=== PATIENT | male | born 1950 | race Caucasian/White ===

== ENCOUNTER 2017-12-01 02:38 | Emergency (ER) | payer MEDICARE, BC ==
[~2017-12-01] VITALS: Ht 170.2 cm; Wt 91.3 kg
[~2017-12-01 02:38] MED LIST: ADLT ASA LOW81 MG PO; AMLODIPINE BESYL5 MG PO; ATORVASTATIN CA40 MG PO; INDOMETHACIN50 MG PO; LOSARTAN POT50 MG PO
[2017-12-01] MEDS ORDERED: NAPROSYN500 MG PO (03:01)
[2017-12-01] MEDS ORDERED: CILOSTAZOL100 MG PO (03:01)
[2017-12-01] MEDS ORDERED: VERAPAMIL180 M2 PO (03:01)
[2017-12-01] MEDS ORDERED: CRESTOR20 MG PO (03:02)
[2017-12-01] MEDS ORDERED: CELEXA20 MG PO (03:03)
[2017-12-01] MEDS ORDERED: MELOXICAM15 MG PO (03:03)
[2017-12-01 03:23] LABS: IMMATURE GRANULOCYTES 0.3 % (0.0-1.0); MEAN CORPUSCULAR HGB 30.1 pG CALC (26.0-32.0); MEAN CORPUSCULAR HGB CONC 33.6 g/L CALC (32.0-36.0); NEUT# 6.84 thou/uL (1.82-7.42); RED BLOOD COUNT 3.22 mill/uL (4.70-6.10)
[2017-12-01 03:24] LABS: HEMATOCRIT 28.9 % (39.0-50.0); HEMOGLOBIN 9.7 g/dl (14.0-18.0)
[2017-12-01 03:25] LABS: MEAN CELL VOLUME 89.8 fL CALC (80.0-100.0)
[2017-12-01 03:31] LABS: ALBUMIN 4.5 g/dL (3.2-5.0); ALKALINE PHOSPHATASE 64 u/l (38-126); AMYLASE 86 u/l (30-110); ANION GAP 15 (6-22 (CALC)); BILIRUBIN, TOTAL 0.4 mg/dL (0.0-1.4); BUN 15 mg/dL (8-23); BUN/CREATININE RATIO 24 (12-20 (CALC)); CARBON DIOXIDE 26 mmol/l (22-30); CHLORIDE 101 mmol/l (95-108); CREATININE 0.6 mg/dL (0.7-1.3); GFR > 60 ML/MIN (>=60 (CALC)); GFR FOR AFR.AMER. > 60 ML/MIN (>=60 (CALC)); LIPASE 135 u/l (23-300); POTASSIUM 3.9 mmol/l (3.5-5.1); SGOT/AST 20 u/l (19-48); SGPT/ALT 33 u/l (11-66); SODIUM 139 mmol/l (137-146); TOTAL PROTEIN 7.4 g/dL (6.3-8.2)
[2017-12-01 03:43] LABS: MYOGLOBIN 36 ng/mL (0 - 121)
[2017-12-01] MEDS ORDERED: METFORMIN500 MG PO (05:41)
[2017-12-01 06:10] VITALS: BP 152/70
== END 2017-12-01 06:19 ==
LOC: ED 02:38
PROVIDERS: Emergency Medicine
DX: K92.2 Gastrointestinal hemorrhage, unspecified (principal); E11.9 Type 2 diabetes mellitus without complications; I10 Essential (primary) hypertension; E78.00 Pure hypercholesterolemia, unspecified; F17.210 Nicotine dependence, cigarettes, uncomplicated; Z95.2 Presence of prosthetic heart valve; R07.9 Chest pain, unspecified
CPT/HCPCS: S0164

== ENCOUNTER 2018-03-21 16:48 | Emergency (ER) | payer MEDICARE ==
[~2018-03-21] VITALS: Ht 170.2 cm; Wt 72.7 kg
[~2018-03-21 16:48] MED LIST changes: +CELEXA20 MG PO; +CILOSTAZOL100 MG PO; +CRESTOR20 MG PO; +MELOXICAM15 MG PO; +METFORMIN500 MG PO; +NAPROSYN500 MG PO; +VERAPAMIL180 M2 PO
[2018-03-21 17:03] LABS: IMMATURE GRANULOCYTES 0.3 % (0.0-5.0); MEAN CELL VOLUME 85.6 fL CALC (80.0-100.0); MEAN CORPUSCULAR HGB 28.6 pG CALC (26.0-32.0); MEAN CORPUSCULAR HGB CONC 33.5 g/L CALC (32.0-36.0); NEUT# 3.08 thou/uL (1.82-7.42); RED BLOOD COUNT 5.69 mill/uL (4.70-6.10); RED CELL DISTRI WIDTH 19.1 % (11.5-15.5)
[2018-03-21 17:18] LABS: HEMATOCRIT 48.7 % (39.0-50.0); HEMOGLOBIN 16.3 g/dl (14.0-18.0)
[2018-03-21 18:03] LABS: ALBUMIN 4.4 g/dL (3.2-5.0); ALKALINE PHOSPHATASE 59 u/l (38-126); ANION GAP 20 (6-22 (CALC)); BILIRUBIN, TOTAL 0.3 mg/dL (0.0-1.4); BUN 21 mg/dL (8-23); BUN/CREATININE RATIO 29 (12-20 (CALC)); CARBON DIOXIDE 23 mmol/l (22-30); CHLORIDE 107 mmol/l (95-108); CREATININE 0.7 mg/dL (0.7-1.3); GFR > 60 ML/MIN (>=60 (CALC)); GFR FOR AFR.AMER. > 60 ML/MIN (>=60 (CALC)); POTASSIUM 4.3 mmol/l (3.5-5.1); SGOT/AST 27 u/l (19-48); SODIUM 147 mmol/l (137-146); TOTAL PROTEIN 7.1 g/dL (6.3-8.2)
[2018-03-21 18:13] LABS: ETHYL ALCOHOL 343 mg/dl (0-30)
[2018-03-21] MEDS ORDERED: VERAPAMIL180 M1 PO (18:15)
[2018-03-21] MEDS ORDERED: PROTONIX40 M2 PO (18:16)
[2018-03-21] MEDS ORDERED: TRAMADOL HYDROC50 MG PO (18:17)
[2018-03-21 18:19] LABS: URINE BILIRUBIN - DIPSTICK NEGATIVE (NEGATIVE); URINE BLOOD DIPSTICK TRACE-INTACT (NEGATIVE); URINE COLOR YELLOW; URINE GLUCOSE - DIPSTICK NEGATIVE (NEGATIVE); URINE KETONE TRACE mg/dL (NEGATIVE); URINE LEUK ESTERASE NEGATIVE (NEGATIVE); URINE NITRITE - DIPSTICK NEGATIVE (Negative); URINE PROTEIN - DIPSTICK 30 mg/dL (NEG-TRACE); URINE SPECIFIC GRAVITY >=1.030; URINE UROBILINOGEN - DIPSTICK 0.2 E.U./dL (0.2)
[2018-03-21 18:20] LABS: URINE CLARITY CLEAR
[2018-03-21 18:24] LABS: BARBITURATES NEGATIVE (NEGATIVE); COCAINE NEGATIVE (NEGATIVE); METHADONE NEGATIVE (NEGATIVE); OXCYCODONE NEGATIVE (NEGATIVE); TETRAHYDROCANNABIONOL NEGATIVE (NEGATIVE); TRICYLIC ANTIDEPRESSANTS NEGATIVE (NEGATIVE)
[2018-03-21 18:30] LABS: URINE MUCUS FEW hpf (NONE-FEW); URINE SQUAMOUS EPITHELIAL CELL FEW EPI/hpf (0-FEW)
[2018-03-22 01:35] VITALS: BP 151/67
== END 2018-03-22 01:35 ==
LOC: ED 16:48
DX: R45.851 Suicidal ideations (principal); F32.9 Major depressive disorder, single episode, unspecified; F10.10 Alcohol abuse, uncomplicated; E11.9 Type 2 diabetes mellitus without complications; I10 Essential (primary) hypertension; J44.9 Chronic obstructive pulmonary disease, unspecified; F17.200 Nicotine dependence, unspecified, uncomplicated

== ENCOUNTER 2021-10-18 18:37 | Observation (INO) | payer MEDICARE, MEDICAID ==
[~2021-10-18] VITALS: Ht 170.2 cm; Wt 78.0 kg
[2021-10-18] VITALS (11 sets, daily range): BP systolic 131–157; BP diastolic 61–78
[~2021-10-18 18:37] MED LIST changes: +PROTONIX40 M2 PO; +TRAMADOL HYDROC50 MG PO; +VERAPAMIL180 M1 PO
[2021-10-18 19:51] LABS: ALBUMIN 4.9 g/dL (3.2-5.0); ALKALINE PHOSPHATASE 58 u/l (38-126); ANION GAP 30 (6-22 (CALC)); BILIRUBIN, TOTAL 0.4 mg/dL (0.0-1.4); BUN 27 mg/dL (8-23); BUN/CREATININE RATIO 28 (12-20 (CALC)); CARBON DIOXIDE 10 mmol/l (22-30); CHLORIDE 108 mmol/l (95-108); ETHYL ALCOHOL 197 mg/dl (0-30); GFR FOR AFR.AMER. > 60 ML/MIN (>=60 (CALC)); GFR OTHER RACES > 60 ML/MIN (>=60 (CALC)); LIPASE 159 u/l (23-300); POTASSIUM 4.7 mmol/l (3.5-5.1); SGOT/AST 31 u/l (19-48); SODIUM 143 mmol/l (137-146); TOTAL PROTEIN 7.3 g/dL (6.3-8.2)
[2021-10-18 20:02] LABS: MYOGLOBIN 63 ng/mL (0 - 121)
[2021-10-18 20:11] LABS: HEMATOCRIT 46.4 % (39.0-50.0); HEMOGLOBIN 15.3 g/dl (14.0-18.0); IMMATURE GRANULOCYTES 0.4 % (0.0-5.0); MEAN CELL VOLUME 102.9 fL CALC (80.0-100.0); MEAN CORPUSCULAR HGB 33.9 pG CALC (26.0-32.0); NEUT# 6.05 thou/uL (1.82-7.42); RED BLOOD COUNT 4.51 mill/uL (4.70-6.10); RED CELL DISTRI WIDTH 12.8 % (11.5-15.5)
[2021-10-18 21:35] LABS: URINE BILIRUBIN - DIPSTICK NEGATIVE (NEGATIVE); URINE BLOOD DIPSTICK TRACE-INTACT (NEGATIVE); URINE COLOR YELLOW; URINE GLUCOSE - DIPSTICK 500 mg/dL (NEGATIVE); URINE KETONE 40 mg/dL (NEGATIVE); URINE LEUK ESTERASE NEGATIVE (NEGATIVE); URINE PH 5.5 (4.5-8.0); URINE PROTEIN - DIPSTICK 30 mg/dL (NEG-TRACE); URINE UROBILINOGEN - DIPSTICK 0.2 E.U./dL (0.2)
[2021-10-18 21:44] LABS: URINE NITRITE - DIPSTICK NEGATIVE (Negative); URINE RBC 0-2 RBC/hpf (0-5)
[2021-10-19] VITALS (9 sets, daily range): BP systolic 124–148; BP diastolic 49–69
[2021-10-19 10:57] LABS: MEAN CELL VOLUME 104.3 fL CALC (80.0-100.0); MEAN CORPUSCULAR HGB CONC 33.5 g/dL CAL (32.0-36.0); RED BLOOD COUNT 3.49 mill/uL (4.70-6.10); RED CELL DISTRI WIDTH 12.8 % (11.5-15.5)
[2021-10-19 11:07] LABS: HEMATOCRIT 36.4 % (39.0-50.0); HEMOGLOBIN 12.2 g/dl (14.0-18.0)
[2021-10-19 11:15] LABS: ANION GAP 15 (6-22 (CALC)); BUN 23 mg/dL (8-23); BUN/CREATININE RATIO 33 (12-20 (CALC)); CHLORIDE 111 mmol/l (95-108); CREATININE 0.7 mg/dL (0.7-1.3); GFR FOR AFR.AMER. > 60 ML/MIN (>=60 (CALC)); GFR OTHER RACES > 60 ML/MIN (>=60 (CALC)); POTASSIUM 4.4 mmol/l (3.5-5.1); SODIUM 138 mmol/l (137-146)
[2021-10-19 11:17] LABS: CARBON DIOXIDE 16 mmol/l (22-30)
== END 2021-10-19 15:15 | disposition home or self-care (01) ==
LOC: ED 18:37 → ED-I 22:47 → ED 10-19 00:13 → MS2 10-19 00:14
PROVIDERS: Nurse Practitioner; ADMIT Hospitalist; ATTEND Hospitalist
DX: R10.12 Left upper quadrant pain (principal); E87.2 Acidosis; E86.0 Dehydration; K82.8 Other specified diseases of gallbladder; F10.20 Alcohol dependence, uncomplicated; I10 Essential (primary) hypertension; E11.9 Type 2 diabetes mellitus without complications; J44.9 Chronic obstructive pulmonary disease, unspecified; E78.5 Hyperlipidemia, unspecified; K21.9 Gastro-esophageal reflux disease without esophagitis; F17.200 Nicotine dependence, unspecified, uncomplicated; Z86.73 Personal history of transient ischemic attack (TIA), and cerebral infarction without residual deficits; Z95.2 Presence of prosthetic heart valve; Z20.822 Contact with and (suspected) exposure to COVID-19
CPT/HCPCS: G0378; Q9967; S0164

== ENCOUNTER 2021-11-24 18:28 | Emergency (ER) | payer MEDICARE, MEDICAID ==
[2021-11-24] VITALS (14 sets, daily range): BP systolic 95–123; BP diastolic 55–73
[~2021-11-24] VITALS: Ht 170.2 cm; Wt 85.0 kg
[2021-11-24 18:57] LABS: HEMATOCRIT 38.8 % (39.0-50.0); HEMOGLOBIN 12.5 g/dl (14.0-18.0); IMMATURE GRANULOCYTES 0.3 % (0.0-5.0); MEAN CORPUSCULAR HGB 31.3 pG CALC (26.0-32.0); MEAN CORPUSCULAR HGB CONC 32.2 g/dL CAL (32.0-36.0); NEUT# 1.31 thou/uL (1.82-7.42); RED CELL DISTRI WIDTH 13.5 % (11.5-15.5)
[2021-11-24 19:14] LABS: ALBUMIN 4.1 g/dL (3.2-5.0); ALKALINE PHOSPHATASE 66 u/l (38-126); BUN 6 mg/dL (8-23); BUN/CREATININE RATIO 9 (12-20 (CALC)); CHLORIDE 106 mmol/l (95-108); CPK 25 u/l (52-200); CREATININE 0.7 mg/dL (0.7-1.3); ETHYL ALCOHOL 275 mg/dl (0-30); GFR FOR AFR.AMER. > 60 ML/MIN (>=60 (CALC)); GFR OTHER RACES > 60 ML/MIN (>=60 (CALC)); MAGNESIUM 1.7 mg/dL (1.6-2.3); POTASSIUM 3.6 mmol/l (3.5-5.1); SODIUM 142 mmol/l (137-146); TOTAL PROTEIN 6.4 g/dL (6.3-8.2)
[2021-11-24 19:16] LABS: ACT PARTIAL THROMBO TIME 23.5 SECONDS (20.0-32.5); PROTHROMBIN TIME 10.4 SECONDS (9.0-12.5)
[2021-11-24 19:18] LABS: ANION GAP 17 (6-22 (CALC)); BILIRUBIN, TOTAL 0.2 mg/dL (0.0-1.4); CARBON DIOXIDE 23 mmol/l (22-30); SGOT/AST 75 u/l (19-48)
[2021-11-24 19:22] LABS: MYOGLOBIN 32 ng/mL (0 - 121)
[2021-11-24 19:44] LABS: TSH, 3RD GENERATION 0.46 uIU/mL (0.47 - 4.68)
[2021-11-24 21:52] LABS: URINE BILIRUBIN - DIPSTICK NEGATIVE (NEGATIVE); URINE BLOOD DIPSTICK NEGATIVE (NEGATIVE); URINE COLOR YELLOW; URINE GLUCOSE - DIPSTICK NEGATIVE (NEGATIVE); URINE KETONE NEGATIVE (NEGATIVE); URINE LEUK ESTERASE NEGATIVE (NEGATIVE); URINE PROTEIN - DIPSTICK NEGATIVE (NEG-TRACE); URINE SPECIFIC GRAVITY <=1.005; URINE UROBILINOGEN - DIPSTICK 0.2 E.U./dL (0.2)
[2021-11-24 21:53] LABS: URINE NITRITE - DIPSTICK NEGATIVE (Negative)
[2021-11-25] VITALS: BP 108/57
[2021-11-25 00:30] VITALS: BP 108/57
== END 2021-11-25 00:50 | disposition home or self-care (01) ==
LOC: ED 18:28
PROVIDERS: Family Medicine
DX: F10.129 Alcohol abuse with intoxication, unspecified (principal); F12.10 Cannabis abuse, uncomplicated; I10 Essential (primary) hypertension; E11.9 Type 2 diabetes mellitus without complications; F17.200 Nicotine dependence, unspecified, uncomplicated; Z86.73 Personal history of transient ischemic attack (TIA), and cerebral infarction without residual deficits; Z95.2 Presence of prosthetic heart valve; T50.916A Underdosing of multiple unspecified drugs, medicaments and biological substances, initial encounter; Z91.128 Patient's intentional underdosing of medication regimen for other reason; Z20.822 Contact with and (suspected) exposure to COVID-19

== ENCOUNTER 2021-12-10 14:44 | Inpatient (IN) | payer MEDICARE, MEDICAID ==
[~2021-12-10] VITALS: Ht 170.2 cm; Wt 66.0 kg
[2021-12-10] VITALS (9 sets, daily range): BP systolic 85–130; BP diastolic 50–77
--- NOTE | 2021-12-10 15:00 | NUR ---
PT TO ROOM VIA WC
[2021-12-10] MEDS ORDERED: ASPIRIN 81 LOW81 MG PO (15:16)
[2021-12-10 15:24] LABS: HEMATOCRIT 40.1 % (39.0-50.0); HEMOGLOBIN 12.6 g/dl (14.0-18.0); IMMATURE GRANULOCYTES 0.1 % (0.0-5.0); MEAN CELL VOLUME 93.5 fL CALC (80.0-100.0); MEAN CORPUSCULAR HGB 29.4 pG CALC (26.0-32.0); MEAN CORPUSCULAR HGB CONC 31.4 g/dL CAL (32.0-36.0); NEUT# 5.02 thou/uL (1.82-7.42); RED BLOOD COUNT 4.29 mill/uL (4.70-6.10); RED CELL DISTRI WIDTH 14.3 % (11.5-15.5)
[2021-12-10 15:46] LABS: ALBUMIN 4.1 g/dL (3.2-5.0); ANION GAP 12 (6-22 (CALC)); BUN 10 mg/dL (8-23); BUN/CREATININE RATIO 12 (12-20 (CALC)); CARBON DIOXIDE 27 mmol/l (22-30); CHLORIDE 99 mmol/l (95-108); CREATININE 0.8 mg/dL (0.7-1.3); ETHYL ALCOHOL 0 mg/dl (0-30); GFR FOR AFR.AMER. > 60 ML/MIN (>=60 (CALC)); GFR OTHER RACES > 60 ML/MIN (>=60 (CALC)); LIPASE 208 u/l (23-300); POTASSIUM 3.4 mmol/l (3.5-5.1); SGOT/AST 38 u/l (19-48); SODIUM 135 mmol/l (137-146)
[2021-12-10 15:58] LABS: ALKALINE PHOSPHATASE 109 u/l (38-126); BILIRUBIN, TOTAL 0.6 mg/dL (0.0-1.4)
--- NOTE | 2021-12-10 17:00 | NUR ---
LYING IN BED RESTING QUIETLY. DENIES PAIN OR DISCOMFORT. PATIENT ALERT ANE PLEASANT. DENIES PAIN OR DISCOMFORT. CALL LIGHT IN REACH. NO ACUTE DISTRESS NOTED. PATIENT TO BE ADMITTED TO HOSPITAL. PATIENT AWARE AND AGREEABLE WITH PLAN OF CARE. CALL LIGHT IN REACH. HOB ELEVATED. WILL CONINUE WITH PLAN OF CARE.
--- NOTE | 2021-12-10 18:08 | NUR ---
Reassessment of patient completed. No distress noted.
--- NOTE | 2021-12-10 19:25 | NUR ---
PATIENT RESTING IN BED. NO DISTRESS NOTED. PATIENT HAS NO COMPLAINTS AT THIS THIS. STATES "DIARRHEA IS NOT BAD". CIWA ASSESSMENT COMPLETED. PT AOX3. VSS. FASLL PRECAUTIONS EDUCATION PROVIDED. PATIENT STATES UNDERSTANDING OF PRECAUTIONS. CALL PARRA WITHIN REACH.
[2021-12-11] VITALS (9 sets, daily range): BP systolic 109–133; BP diastolic 54–67
[2021-12-11 07:07] LABS: ANION GAP 7 (6-22 (CALC)); BUN 7 mg/dL (8-23); BUN/CREATININE RATIO 13 (12-20 (CALC)); CARBON DIOXIDE 27 mmol/l (22-30); CHLORIDE 105 mmol/l (95-108); CREATININE 0.6 mg/dL (0.7-1.3); GFR FOR AFR.AMER. > 60 ML/MIN (>=60 (CALC)); GFR OTHER RACES > 60 ML/MIN (>=60 (CALC)); MAGNESIUM 1.6 mg/dL (1.6-2.3); POTASSIUM 3.2 mmol/l (3.5-5.1); SODIUM 135 mmol/l (137-146)
[2021-12-11] MEDS ORDERED: SYNJARDY XR 25-1 TAB PO (11:27)
[2021-12-11] MEDS ORDERED: PERCOCET 5/321 COMBO PO (11:28)
[2021-12-11] MEDS ORDERED: MULTIVITAMI1 PO (11:28)
[2021-12-11] MEDS ORDERED: CINNAMON500 M1 PO (11:29)
--- NOTE | 2021-12-11 12:18 | NUR ---
PT RESTING IN SEMI FOWLERS POSITION. ASSESSMENT AND VS COMPLETED. HEART RHYTHM NORMAL WITH RESPIRATIONS EVEN AND UNLABORED. BOWEL SOUNDS ACTIVE. PT IV NOTED. PT DENIES ANY PAIN AL SAFETY PRECAUTIONS IN PLACE. WITH CALL LIGHT IN REACH.
--- NOTE | 2021-12-11 12:47 | NUR ---
PT RESTING IN SMEI FOWLERS POSITION. PT DENIES ADDITIONAL NEEDS ALL SAFETY PRECAUTIONS IN PLACE. CALL LIGHT IN REACH.
--- NOTE | 2021-12-11 16:39 | NUR ---
PT RESTING IN LOW FOWLERS POSITION. PT DENIES ADDITIONAL NEEDS AT THE MOMENT ALL SAFETY PRECAUTIONS IN PLACE.
--- NOTE | 2021-12-11 19:15 | NUR ---
RECIEVED REPORT FROM Bong JUAREZ PT ASSUMED AT THIS TIME.
--- NOTE | 2021-12-11 21:50 | NUR ---
PT RESTING IN BED WATCHING TV. PT HAD TREMORS AND WAS SLIGHTLY AGITATED. PT BREATHING WAS NON LABORED, EVEN AND THERE WAS NO DISTRESS NOTED. HEART SOUNDS WERE NORMAL. PT WAS ABLE TO COMMUNICATE CLEARLY AND APPROPRIATELY. PT DENIED NEEDING TO USE THE RESTROOM. I PROVIDED A DRINK AND EMCOURAGED FLUIDS. LUNG SOUNDS WERE CLEAR, ABDOMEN IS NON DISTENDED AND NOT TENDER. PT HAD STROUNG PEDIAL AND RADIAL PULSES, NO EDEMA IN EXTREMITIES. SIDE RAILS X2 FOR ASSISTANCE IN BED MOBILITY, CALL LIGHT IN REACH AND BED IN LOWEST POSITION. BED WHEELS LOCKED.
[2021-12-12] VITALS (7 sets, daily range): BP systolic 99–151; BP diastolic 52–75
--- NOTE | 2021-12-12 00:15 | NUR ---
PT SLEEPING IN SEMI HIGH FOWLERS POSITION. PT WAS SLIGHTLTY SWEATING. BREATHING WAS EVEN AND UNLABORED. TELLEY MONITOR READING NORMAL AND WILL BE CONTINUED TO BE MONITORED BY THE ED. BED RAILS X2 FOR ASSISTANCE IN BED MOBILITY, CALL LISSA JOHNSON, BED IN LOWEST POSITION AND WHEELS LOCKED.
--- NOTE | 2021-12-12 04:08 | NUR ---
RESTAURANT MANAGEMENT INTERNSHIP IN TO DRAW PATIENTS MORNING LABS.
[2021-12-12 05:31] LABS: MEAN CELL VOLUME 94.7 fL CALC (80.0-100.0); MEAN CORPUSCULAR HGB 29.9 pG CALC (26.0-32.0); MEAN CORPUSCULAR HGB CONC 31.6 g/dL CAL (32.0-36.0); RED BLOOD COUNT 3.41 mill/uL (4.70-6.10); RED CELL DISTRI WIDTH 14.6 % (11.5-15.5)
[2021-12-12 05:38] LABS: HEMATOCRIT 32.3 % (39.0-50.0); HEMOGLOBIN 10.2 g/dl (14.0-18.0)
[2021-12-12 06:01] LABS: ANION GAP 9 (6-22 (CALC)); BUN 10 mg/dL (8-23); BUN/CREATININE RATIO 16 (12-20 (CALC)); CARBON DIOXIDE 24 mmol/l (22-30); CHLORIDE 105 mmol/l (95-108); CREATININE 0.6 mg/dL (0.7-1.3); GFR FOR AFR.AMER. > 60 ML/MIN (>=60 (CALC)); GFR OTHER RACES > 60 ML/MIN (>=60 (CALC)); MAGNESIUM 1.6 mg/dL (1.6-2.3); POTASSIUM 3.5 mmol/l (3.5-5.1); SODIUM 135 mmol/l (137-146)
--- NOTE | 2021-12-12 08:00 | NUR ---
PT RESTING IN HIGH FOWLERS POSITION. A/0X3 ASSESSMENT AND VS COMPLETED. HEART RHYTHM NORMAL TELE IN PLACE. RESPIRATIONS EVEN AND UNLABORED, BOWEL SOUNDS ACTIVE. IV NOTED FLUSHED. PT C/O PAIN MEDICASTED PER EMAR ALL SAFETY PRECAUTIONS IN PLACE. WITH CALL LIGHT IN REACH.
--- NOTE | 2021-12-12 12:18 | NUR ---
PT RESTING IN LOW FOWLERS POSITION. PT DENIES ADDITIONAL NEEDS AT THE TIME ALL SAFETY PRECAUTIONS IN PLACE.
--- NOTE | 2021-12-12 16:21 | NUR ---
PT RESTING IN LOW FOWLERS POSITION. PT HAS DENIES ADDITIONAL NEEDS AT THE MOMNENT ALL SAFETY PRECAUTIONS IN PLACE
[2021-12-13] VITALS (8 sets, daily range): BP systolic 92–117; BP diastolic 45–68
--- NOTE | 2021-12-13 00:55 | NUR ---
PT IN BED ASLEEP NO DISTRESS NOTED, BED IN LOW POSITION, CALL ;IGHT IN REACH
--- NOTE | 2021-12-13 05:06 | NUR ---
PT IN BED AWAKE, NO DISTRESS NOTED, BED IN LOW POSITION, CALL LIGHT IN REACH
[2021-12-13 05:56] LABS: ALKALINE PHOSPHATASE 61 u/l (38-126); ANION GAP 8 (6-22 (CALC)); BUN 10 mg/dL (8-23); BUN/CREATININE RATIO 14 (12-20 (CALC)); CARBON DIOXIDE 25 mmol/l (22-30); CHLORIDE 107 mmol/l (95-108); CREATININE 0.7 mg/dL (0.7-1.3); GFR FOR AFR.AMER. > 60 ML/MIN (>=60 (CALC)); GFR OTHER RACES > 60 ML/MIN (>=60 (CALC)); MAGNESIUM 1.6 mg/dL (1.6-2.3); POTASSIUM 3.7 mmol/l (3.5-5.1); SGOT/AST 25 u/l (19-48); SODIUM 136 mmol/l (137-146)
[2021-12-13 05:58] LABS: ALBUMIN 2.8 g/dL (3.2-5.0); BILIRUBIN, TOTAL 0.2 mg/dL (0.0-1.4)
--- NOTE | 2021-12-13 07:00 | NUR ---
REPORT RECEIVED FROM HOUSE CALLS NURSECONTRACT TECHNICAL WRITER
--- NOTE | 2021-12-13 09:40 | NUR ---
PT RESTING IN BED. CIWA SCORE OF 0. ASSESSMENT ALLOWED. BREATHIGN EVEN AND UNLABORED. SHAKEY HANDS PRESENT. PT IS A&OX3. BREATHING EVEN AND UNLABORED. TELE MONTITOR IN PLACE. CONTINOUS MONITORING PER ED. IV: [address] FLUSHED. FALL/SAFTEY PRECAUTION IN PLACE. CALL LIGHT WITHIN REACH
--- NOTE | 2021-12-13 11:47 | NUR ---
PT COMPLAINING OF BACK PAIN 02/01. MEDICATED SEE EMAR. STATES NO OTHER NEEDS AT THIS TIME. FALL/SAFTEY PRECAUTION IN PLACE. CALL LIGHT WITHIN REACH
--- NOTE | 2021-12-13 11:55 | NUR ---
Patient is screened for intervention and no needs are identified at this time
--- NOTE | 2021-12-13 13:55 | NUR ---
PT RESTING IN BED STATES PAIN MEDICATION WORKED. BP: 97/47 REASSESSED BP: 92/52. PT IS ASYMPTOMATIC. STATES NO FEELING OF DIZZINESS/FAINTNESS. PT SHOWS NO DIAPHORESIS. BREATHING EVEN AND UNLABORED. FALL/SAFTEY PRECAUTION IN PLACE. CALL LIGHT WITHIN REACH
--- NOTE | 2021-12-13 15:39 | NUR ---
bp: 101/57 hr: 74 spo2: 98 pt asymptomatic ciwa score 1. states no needs at this time. fall/saftey precaution in place. call light within reach
--- NOTE | 2021-12-13 16:45 | NUR ---
BLOOD GLUCOSE CHECK: 85
[2021-12-14] VITALS (7 sets, daily range): BP systolic 88–114; BP diastolic 49–59
--- NOTE | 2021-12-14 04:13 | NUR ---
PT A/O X3, NO ACUTE OVERNIGHT EVENTS, BED IN LOW POSITION, CALL LIGHT IN REACH CIWA- 1 THIS AM
--- NOTE | 2021-12-14 08:30 | NUR ---
PT LAYING IN BED. NO DISTRESS NOTED. A&O X3. CLEAR BREATH SOUNDS UPON AUSCULTATION. ACTIVE BOWEL SOUNDS X4 QUADRANTS. IV HEALTHY AND PATENT. WHITING MACHINE OPERATOR IN PLACE. CIWA 3 THIS MORNING. PT REPORTS FEELING ABOUT THE SAME YESTERDAY. UPDATED PT ON POC. ASSESSMENT COMPLETED. DISCUSSED POC. CALL LIGHT WITHIN REACH.
--- NOTE | 2021-12-14 12:20 | NUR ---
PT SITTING ON THE SIDE OF THE BED ATTEMPTING TO EAT LUNCH. NO DISTRESS AT THIS TIME. CALL LIGHT WITHIN REACH.
--- NOTE | 2021-12-14 16:05 | NUR ---
LIBRIUM GIVEN AT THIS TIME. PT AMBULATORY TO BATHROOM, STEADY GAIT NOTED. CALL LIGHT WITHIN REACH.
[2021-12-15 00:33] VITALS: BP 99/52
[2021-12-15 03:48] VITALS: BP 112/52
--- NOTE | 2021-12-15 04:06 | NUR ---
PT IN BED ASLEEP, NO DISTRESS NOTED, NO OVER NIGHT EVENTS, CIWA- 7 AT 2000, 4'S AT 0000, 0400, BED IN LOW POSITION, CALL LIGHT IN REACH
[2021-12-15 05:39] LABS: HEMATOCRIT 29.9 % (39.0-50.0); HEMOGLOBIN 9.4 g/dl (14.0-18.0); IMMATURE GRANULOCYTES 0.3 % (0.0-5.0); MEAN CELL VOLUME 94.6 fL CALC (80.0-100.0); MEAN CORPUSCULAR HGB 29.7 pG CALC (26.0-32.0); MEAN CORPUSCULAR HGB CONC 31.4 g/dL CAL (32.0-36.0); NEUT# 1.2 thou/uL (1.82-7.42); RED BLOOD COUNT 3.16 mill/uL (4.70-6.10); RED CELL DISTRI WIDTH 14.6 % (11.5-15.5)
[2021-12-15 05:43] LABS: AMYLASE 81 u/l (30-110); ANION GAP 6 (6-22 (CALC)); BUN 13 mg/dL (8-23); BUN/CREATININE RATIO 15 (12-20 (CALC)); CARBON DIOXIDE 27 mmol/l (22-30); CHLORIDE 108 mmol/l (95-108); CREATININE 0.9 mg/dL (0.7-1.3); GFR FOR AFR.AMER. > 60 ML/MIN (>=60 (CALC)); GFR OTHER RACES > 60 ML/MIN (>=60 (CALC)); POTASSIUM 3.9 mmol/l (3.5-5.1); SODIUM 137 mmol/l (137-146)
[2021-12-15 06:29] VITALS: BP 114/58
--- NOTE | 2021-12-15 08:15 | NUR ---
RESTING QUIETLY IN BED, NO SIGNS OR SYMPTOMS OF DISTRESS NOTED OR VOICED, IV PATENT, NO C/O PAIN.
--- NOTE | 2021-12-15 12:18 | NUR ---
RESTING QUIETLY IN ROOM, NO SIGNS OR SYMPTOMS OF DISTRESS NOTED OR VOICED.
[2021-12-15 14:58] VITALS: BP 96/53
--- NOTE | 2021-12-15 16:10 | NUR ---
RESTING QUIETLY IN BED, NO SIGNS OR SYMPTOMS OF DISTRESS NOTED OR VOICED.
--- NOTE | 2021-12-15 21:59 | NUR ---
PT IN BED AWAKE NO DISTRESS NOTED, BED IN LOW POSITION, CALL LIGHT IN REACH
[2021-12-15 23:39] VITALS: BP 119/54
[2021-12-16 03:45] VITALS: BP 124/63
--- NOTE | 2021-12-16 04:26 | NUR ---
PT IN BED ASLEEP, NO OVERNIGHT EVENTS, BED IN LOW POSITION, CALL LIGHT IN REACH
[2021-12-16 05:38] LABS: HEMATOCRIT 34.2 % (39.0-50.0); HEMOGLOBIN 10.7 g/dl (14.0-18.0); MEAN CELL VOLUME 92.9 fL CALC (80.0-100.0); MEAN CORPUSCULAR HGB 29.1 pG CALC (26.0-32.0); MEAN CORPUSCULAR HGB CONC 31.3 g/dL CAL (32.0-36.0); NEUT# 1.48 thou/uL (1.82-7.42); RED BLOOD COUNT 3.68 mill/uL (4.70-6.10); RED CELL DISTRI WIDTH 14.6 % (11.5-15.5)
[2021-12-16 06:03] LABS: LIPASE 327 u/l (23-300)
[2021-12-16 06:08] LABS: ALBUMIN 3.3 g/dL (3.2-5.0); ALKALINE PHOSPHATASE 65 u/l (38-126); AMYLASE 104 u/l (30-110); ANION GAP 10 (6-22 (CALC)); BILIRUBIN, TOTAL 0.2 mg/dL (0.0-1.4); BUN 11 mg/dL (8-23); BUN/CREATININE RATIO 16 (12-20 (CALC)); CARBON DIOXIDE 25 mmol/l (22-30); CHLORIDE 107 mmol/l (95-108); CREATININE 0.7 mg/dL (0.7-1.3); GFR FOR AFR.AMER. > 60 ML/MIN (>=60 (CALC)); GFR OTHER RACES > 60 ML/MIN (>=60 (CALC)); POTASSIUM 3.8 mmol/l (3.5-5.1); SGOT/AST 29 u/l (19-48); SODIUM 139 mmol/l (137-146); TOTAL PROTEIN 5.7 g/dL (6.3-8.2)
[2021-12-16 06:50] VITALS: BP 124/63
--- NOTE | 2021-12-16 07:35 | NUR ---
PT RESTINMG IN HIGH FOWLERS POSITION A/OX3 ASSESSMENT AND VS COMPLETED. HEARTRHYTHM NORMAL ON TELE RESPIRATIONS EVEN AND UNLABORED. BOWEL SOUNDS HYPOACTIVE. IV SITE NOTED . S.L PT DENIES ADDITIONAL NEEDS AT TIME BESIDES PAIN MED WITH MORNING MEDICATIONS FOR CHRONIC PAIN. ALL SAFETY PRECAUTIONS IN PLACE.
[2021-12-16 08:00] VITALS: BP 130/58
[2021-12-16] MEDS ORDERED: LEXAPRO10 MG PO (10:12)
[2021-12-16] MEDS ORDERED: CHLORDIAZEPOXID25 M1 PO (10:12)
[2021-12-16 10:24] VITALS: BP 130/58
--- NOTE | 2021-12-16 11:40 | NUR ---
Discharge instructions given. Patient verbalizes understanding of same. Discharged in stable condition via Wheelchair to Home with staff. All belongings sent with pt. IV REMOVED TELE REMOVED.
== END 2021-12-16 11:41 | disposition home or self-care (01) | DRG 897 ==
LOC: ED 14:44 → ED-I 15:55 → ED 16:32 → MS2 16:33
PROVIDERS: Family Medicine; Internal Medicine; ADMIT Internal Medicine; ATTEND Internal Medicine
DX: F10.139 Alcohol abuse with withdrawal, unspecified (principal); E46 Unspecified protein-calorie malnutrition; F32.A Depression, unspecified; E87.6 Hypokalemia; I10 Essential (primary) hypertension; E11.9 Type 2 diabetes mellitus without complications; D64.9 Anemia, unspecified; E78.5 Hyperlipidemia, unspecified; M54.50 Low back pain, unspecified; G89.29 Other chronic pain; F17.200 Nicotine dependence, unspecified, uncomplicated; Z68.22 Body mass index [BMI] 22.0-22.9, adult; Z86.73 Personal history of transient ischemic attack (TIA), and cerebral infarction without residual deficits; Z20.822 Contact with and (suspected) exposure to COVID-19
CPT/HCPCS: J1650; J2060

== ENCOUNTER 2022-05-21 17:31 | Emergency (ER) | payer MEDICARE, MEDICAID ==
[2022-05-21] VITALS (8 sets, daily range): BP systolic 106–130; BP diastolic 45–51
[~2022-05-21] VITALS: Ht 154.9 cm; Wt 73.6 kg
[~2022-05-21 17:31] MED LIST changes: +ASPIRIN 81 LOW81 MG PO; +CHLORDIAZEPOXID25 M1 PO; +CINNAMON500 M1 PO; +ELIQUIS5 MG PO; +LEXAPRO10 MG PO; +MULTIVITAMI1 PO; +PERCOCET 5/321 COMBO PO; +SYNJARDY XR 25-1 TAB PO
== END 2022-05-21 19:32 | disposition home or self-care (01) ==
LOC: ED 17:31
DX: M79.642 Pain in left hand (principal); M25.522 Pain in left elbow; I10 Essential (primary) hypertension; E11.9 Type 2 diabetes mellitus without complications; Z86.73 Personal history of transient ischemic attack (TIA), and cerebral infarction without residual deficits

== ENCOUNTER 2022-08-15 08:58 | Emergency (ER) | payer MEDICARE, MEDICAID ==
[~2022-08-15] VITALS: Ht 160 cm; Wt 73.0 kg
[2022-08-15] VITALS (9 sets, daily range): BP systolic 126–156; BP diastolic 49–74
[2022-08-15 10:01] LABS: URINE BILIRUBIN - DIPSTICK NEGATIVE (NEGATIVE); URINE BLOOD DIPSTICK TRACE-INTACT (NEGATIVE); URINE COLOR YELLOW; URINE GLUCOSE - DIPSTICK >=1000 mg/dL (NEGATIVE); URINE KETONE NEGATIVE (NEGATIVE); URINE LEUK ESTERASE NEGATIVE (NEGATIVE); URINE PH 5.5 (4.5-8.0); URINE PROTEIN - DIPSTICK NEGATIVE (NEG-TRACE); URINE UROBILINOGEN - DIPSTICK 0.2 E.U./dL (0.2)
[2022-08-15 10:08] LABS: URINE NITRITE - DIPSTICK NEGATIVE (Negative)
[2022-08-15] MEDS ORDERED: FERRAPLUS 90 PO (10:22)
[2022-08-15 11:07] LABS: BASO% 0.8 % (0-3); EOS% 2.3 % (0-8); HEMATOCRIT 47.6 % (39.0-50.0); HEMOGLOBIN 15.1 g/dl (14.0-18.0); IMMATURE GRANULOCYTES 0.3 % (0.0-5.0); LYMPH% 20.2 % (15-41); MEAN CORPUSCULAR HGB 31.8 pG CALC (26.0-32.0); MEAN CORPUSCULAR HGB CONC 31.7 g/dL CAL (32.0-36.0); MONO% 8.9 % (2-13); NEUT# 4.46 thou/uL (1.82-7.42); NEUT% 67.5 % (42-76); RED BLOOD COUNT 4.75 mill/uL (4.70-6.10); RED CELL DISTRI WIDTH 14.8 % (11.5-15.5)
[2022-08-15 11:10] LABS: MEAN CELL VOLUME 100.2 fL CALC (80.0-100.0)
[2022-08-15 11:40] LABS: ALBUMIN 4.3 g/dL (3.2-5.0); ALKALINE PHOSPHATASE 60 u/l (38-126); ANION GAP 12 (6-22 (CALC)); BILIRUBIN, TOTAL 0.3 mg/dL (0.2-1.3); BUN 13 mg/dL (8-23); BUN/CREATININE RATIO 18 (12-20 (CALC)); CARBON DIOXIDE 28 mmol/l (22-30); CHLORIDE 108 mmol/l (95-108); CREATININE 0.8 mg/dL (0.7-1.3); GFR FOR AFR.AMER. > 60 ML/MIN (>=60 (CALC)); GFR OTHER RACES > 60 ML/MIN (>=60 (CALC)); POTASSIUM 4.8 mmol/l (3.5-5.1); SGOT/AST 31 u/l (19-48); SODIUM 143 mmol/l (137-146); TOTAL PROTEIN 6.7 g/dL (6.3-8.2)
[2022-08-15] MEDS ORDERED: CEFDINIR300 MG PO (12:26)
[2022-08-15] MEDS ORDERED: TRAMADOL HYDROC50 M1 PO (12:26)
== END 2022-08-15 13:56 | disposition home or self-care (01) ==
LOC: ED 08:58
PROVIDERS: Family Medicine
DX: M54.50 Low back pain, unspecified (principal); R31.9 Hematuria, unspecified; I10 Essential (primary) hypertension; E11.9 Type 2 diabetes mellitus without complications; Z86.73 Personal history of transient ischemic attack (TIA), and cerebral infarction without residual deficits

== ENCOUNTER 2024-05-20 11:59 | Observation (INO) | payer MEDICARE, MEDICAID ==
[~2024-05-20] VITALS: Ht 160 cm; Wt 77.4 kg
[~2024-05-20 11:59] MED LIST changes: +CEFDINIR300 MG PO; +FERRAPLUS 90 PO; +TRAMADOL HYDROC50 M1 PO
--- NOTE | 2024-05-20 12:09 | NUR ---
PT TO ER ROOM 15 WITH A STEADY GAIT, PTS FAMILY AT SIDE
[2024-05-20] MEDS ORDERED: SODIUM CHLORIDE 0.9% 1,000 ML IV ONE (12:40)
[2024-05-20] MEDS ORDERED: ONDANSETRON HCl 4 MG/2 ML SDV IV ONE (12:40)
[2024-05-20 12:54] LABS: EOS% 0.8 % (0-8); IMMATURE GRANULOCYTES 0.1 % (0.0-5.0); LYMPH% 18.6 % (15-41); MEAN CORPUSCULAR HGB 29.3 pG CALC (26.0-32.0); MEAN CORPUSCULAR HGB CONC 33.3 g/dL CAL (32.0-36.0); MONO% 7.6 % (2-13); NEUT# 5.62 thou/uL (1.82-7.42); NEUT% 71.9 % (42-76); RED BLOOD COUNT 5.52 mill/uL (4.70-6.10); RED CELL DISTRI WIDTH 14.9 % (11.5-15.5)
[2024-05-20 13:00] LABS: HEMATOCRIT 48.6 % (39.0-50.0); HEMOGLOBIN 16.2 g/dl (14.0-18.0)
[2024-05-20 13:17] LABS: CREATININE 0.9 mg/dL (0.7-1.3); POTASSIUM 4.2 mmol/l (3.5-5.1)
[2024-05-20 13:18] LABS: ALBUMIN 5.2 g/dL (3.2-5.0); BILIRUBIN, TOTAL 0.9 mg/dL (0.2-1.3); MAGNESIUM 2.6 mg/dL (1.6-2.3); TOTAL PROTEIN 7.9 g/dL (6.3-8.2)
[2024-05-20] MEDS ORDERED: Pantoprazole Sodium 40 MG VIAL (Protonix) IV ONE (13:35)
[2024-05-20] MEDS ORDERED: FAMOTIDINE 10MG/ML 2ML SDV IV ONE (13:35)
[2024-05-20] MEDS ORDERED: AZITHROMYCIN 500 MG in SODIUM CHLORIDE 0.9% 500 ML IV ONE (14:25)
[2024-05-20] MEDS ORDERED: ASPIRIN 81 MG/TAB PO ONE (14:50)
--- NOTE | 2024-05-20 16:00 | NUR ---
PT UPDATED ON STATUS.
[2024-05-20] MEDS ORDERED: MAGNESIUM HYDROXIDE 30 ML UDC PO PRN (17:40)
[2024-05-20] MEDS ORDERED: ACETAMINOPHEN 325 MG/TAB PO PRN (17:40)
[2024-05-20] MEDS ORDERED: SODIUM CHLORIDE 0.9% 1,000 ML IV PRN (17:40)
--- NOTE | 2024-05-20 18:44 | NUR ---
PT REPORT TO YOBANY SALGUERO. TRANSFERRED CARE OF PT.
--- NOTE | 2024-05-20 18:46 | NUR ---
PT REPORT TO ALCOHOL RUBBER.
[2024-05-20] MEDS ORDERED: oxyCODONE 5MG/ ACETAMINOPHEN 325MG TAB PO PRN (19:05)
[2024-05-20 19:31] VITALS: BP 157/77
--- NOTE | 2024-05-20 19:40 | NUR ---
REPORT RECEIVED FROM Polo HALL RN AND CARE OF PT ASSUMED AT THIS TIME
[2024-05-20 19:49] VITALS: BP 165/75
--- NOTE | 2024-05-20 19:52 | NUR ---
PT TRANSPORTED TO [facility] VIA WHEELCHAIR IN STABLE CONDITION.
--- NOTE | 2024-05-20 20:15 | NUR ---
PATIENT CAME IN FROM ER AT 1950. BED SIDE ASSESSMENT COMPLETE. PATIENT IS A&O X4. LUNG SOUNDS CLEAR. RESP EVEN AND UNLABORED, NO VISUAL SIGNS OF DISTRESS. BOWEL SOUNDS PRESENT IN ALL 4 QUADRENTS. PERIPHERAL PULSES STRONG AND EQUAL. SAFTY PRECAUTIONS IN PLACE. BED AT LOWEST POSITION. CALL LIGHT WITH IN REACH.
[2024-05-20] MEDS ORDERED: ENOXAPARIN SODIUM 40 MG/0.4 ML SYR SC SCH (21:00)
[2024-05-20] MEDS ORDERED: APIXABAN BASE 5 MG TAB PO SCH (21:00)
--- NOTE | 2024-05-20 23:00 | NUR ---
PATIENT REFUSED ELIQUIS. PATIENT STATED" I DONT NEED TO TAKE IT IF I DONT REALLY TAKE IT AT HOME" EDUCATED PATIENT ON BENIFETS OF MEDICATION.
[2024-05-21 00:02] VITALS: BP 146/67
--- NOTE | 2024-05-21 00:15 | NUR ---
PATIENT IN ROOM RESTING IN BED WITH EYES CLOSED. EQUAL UNLABORED RESP NO VISUAL SIGNS OF DISTRESS. BED AT LOWEST POSITION. CALL LIGHT WITH IN REACH.
[2024-05-21 03:57] VITALS: BP 138/63
--- NOTE | 2024-05-21 04:52 | NUR ---
PATIENT IN ROOM RESTING IN BED WITH EYES CLOSED. EQUAL UNLABORED RESP. NO VISUAL SIGHNS OF DISTRESS. BED AT LOWEST POSITION. CALL LIGHT WITH IN REACH.
[2024-05-21 06:53] VITALS: BP 127/59
[2024-05-21] MEDS ORDERED: ASPIRIN 81 MG/TAB PO SCH (09:00)
[2024-05-21] MEDS ORDERED: VERAPAMIL HCL 180 MG PO SCH (09:00)
[2024-05-21] MEDS ORDERED: PANTOPRAZOLE SODIUM Sesquihydr 40 MG/TAB PO SCH (09:00)
[2024-05-21 10:34] VITALS: BP 121/57
[2024-05-21] MEDS ORDERED: NICOTINE TRANSDERMAL 21 MG/PATCH TD SCH (13:30)
[2024-05-21 15:35] VITALS: BP 139/62
[2024-05-21] MEDS ORDERED: AZITHROMYCIN 500 MG in SODIUM CHLORIDE 0.9% 500 ML IV SCH (16:00)
[2024-05-21 19:02] VITALS: BP 133/56
--- NOTE | 2024-05-21 19:22 | NUR ---
PATIENT IN ROOM RESTING IN BED WATCHING TV. PATIENT CAN MAKE NEEDS KNOWN. NONE NEEDED AT THIS TIME. RESP EQUAL AND UNLABORED, NO VISUAL SIGNS OF DISTRESS. NO COMPLAINTS OF PAIN AT THIS TIME. BOWEL SOUNDS PRESENT. BED AT LOWEST POSITION. CALL LIGHT WITH IN REACH.
--- NOTE | 2024-05-22 00:20 | NUR ---
PATIENT IN ROOM RESTING IN BED AWAKE. PATIENT CAN MAKE NEEDS KNOW, NONE NEEDED AT THIS TIME. UNLABORED RESP. NO VISUAL SIGNS OF DISTRESS. BED AT LOWEST POSITION. CALL LIGHT WITH IN REACH.
[2024-05-22 00:25] VITALS: BP 123/56
[2024-05-22 04:20] VITALS: BP 123/59
--- NOTE | 2024-05-22 04:22 | NUR ---
PATIEN IN ROOM RESTING IN BED WITH EYES CLOSED. EQUAL UNLABORED RESP, NO VISUAL SIGNS OF DISTRESS. BED AT LOWEST POSITION CALL LIGHT WITH IN REACH.
--- NOTE | 2024-05-22 07:15 | NUR ---
RECEIVED REPORT FROM LILIAM AND PT CHECKED RESTING IN BED QUIETLY C/O PERSISTENT DRY COUGH. INSTRUCTED PT OF NEED FOR SPUTUM SAMPLE. LUNG DIMINISHED BILATERAL. ENC COUGH AND DEEP BREATHING EXERCISES. IV PATENT AND TELE CHECKED AND [id number]. CALL LIGHT IN REACH. WILL MONITOR.
[2024-05-22 07:51] VITALS: BP 136/53
[2024-05-22 10:47] VITALS: BP 130/56
--- NOTE | 2024-05-22 11:00 | NUR ---
PT REMAINS WITH CONTINUED DRY COUGH. SPUTUM SENT TO LAB. DR. RODRIGUEZ MAKING ROUNDS AND UPDATED RE: COUGH AND CHEST DISCOMFORT FROM COUGHING. WILL MONITOR.
[2024-05-22] MEDS ORDERED: VANTIN200 M1 PO (12:58)
[2024-05-22] MEDS ORDERED: AZITHROMYCIN500 MG PO (12:58)
[2024-05-22] MEDS ORDERED: MUCINEX1200 MG PO (13:01)
[2024-05-22] MEDS ORDERED: guaiFENesin-CODEINE 200-20 MG/10 ML UDC PO SCH (13:30)
[2024-05-22] MEDS ORDERED: AZITHROMYCIN 250 MG/TAB PO SCH (14:30)
--- NOTE | 2024-05-22 14:51 | NUR ---
PT FINISHING UP IV ANTIBIOTIC FOR D/C HOME. PRINTED D/C INSTRUCTIONS GIVEN AND EDUCATED RE: NEW MEDICATIONS VANTAN, ZITHROMAX AND GUAFFINESSIN. PT VERBALIZED UNDERSTANDING AND GETTING SOME RELIEF WITH COUGH MED GIVEN. PT CALLED RIDE FOR D/C HOME.
--- NOTE | 2024-05-22 16:00 | NUR ---
Discharge instructions given. Patient verbalizes understanding of same. Discharged in stable condition via Wheelchair to Home with staff. All belongings sent with pt.
== END 2024-05-22 16:00 | disposition home or self-care (01) ==
LOC: ED 11:59 → ED-I 15:10 → ED 15:26 → MS2 15:27
PROVIDERS: Nurse Practitioner; ADMIT Internal Medicine; ATTEND Internal Medicine
DX: J18.9 Pneumonia, unspecified organism (principal); R07.9 Chest pain, unspecified; I10 Essential (primary) hypertension; E11.9 Type 2 diabetes mellitus without complications; I48.91 Unspecified atrial fibrillation; F17.200 Nicotine dependence, unspecified, uncomplicated; Z79.01 Long term (current) use of anticoagulants; Z86.73 Personal history of transient ischemic attack (TIA), and cerebral infarction without residual deficits; Z20.822 Contact with and (suspected) exposure to COVID-19
CPT/HCPCS: J0456; J0696; J2405; J2470